=== PATIENT | male | born 1965 | race African-American/Black ===

== ENCOUNTER 2020-08-09 17:36 | Inpatient (IN) | payer OTHER ==
[~2020-08-09] VITALS: Ht 180.3 cm; Wt 87.1 kg
[2020-08-09] MEDS ORDERED: APIX5TAB PO (18:01)
[2020-08-09] MEDS ORDERED: GABA300C PO (18:01)
[2020-08-09] MEDS ORDERED: ROSU40TA23 PO (18:01)
[2020-08-09] MEDS ORDERED: LEVE500T20 PO (18:01)
[2020-08-09] MEDS ORDERED: METO-357 PO (18:01)
[2020-08-09] MEDS ORDERED: MAG HYDROX/AL HYDROX/SIMETH 30 ML UDC PO PRN (18:30)
[2020-08-09] MEDS ORDERED: TEMAZEPAM 7.5 MG CAPSULE PO PRN (18:30)
[2020-08-09] MEDS ORDERED: clonazePAM 0.5 MG TABLET PO SCH (18:30)
[2020-08-09] MEDS ORDERED: MAGNESIUM HYDROXIDE 30 ML UDC PO PRN (18:30)
[2020-08-09] MEDS ORDERED: ACETAMINOPHEN 325 MG TABLET PO PRN (18:30)
[2020-08-09] MEDS ORDERED: BLOOD SUGAR DIAGNOSTIC 1 EACH STRIP IN ONE (18:30)
--- NOTE | 2020-08-09 18:39 | NUR ---
Pt. arrived in the unit at 1800 by ambulance via a gurney. V/S taken and contraband done. Dr. Uriarte made aware of the admission and gave orders and seen pt. Will endorse to the incoming nurse for the completion of the admission.
[2020-08-09 18:43] VITALS: BP 153/73
[2020-08-09 19:58] VITALS: BP 114/81
[2020-08-09 20:00] VITALS: BP 114/81
[2020-08-09] MEDS: ESCITALOPRAM OXALATE (10 MG) 10 MG TABLET PO SCH (20:38)
[2020-08-09] MEDS ORDERED: GLIM2TAB31 PO (21:13)
--- NOTE | 2020-08-09 21:30 | NUR ---
GPS RN NOTE: ADMISSION NOTES ADMITTED THIS 55Y/O MALE PATIENT DIRECT ADMIT FROM [facility], PT. ADMITTED TO GPS ON HOLD 5150, PER HOLD, PATIENT WAS ADMITTED TO [facility] FOR DEPRESSION, PT. STATES THAT HE HAS SI FOR 2 MONTHS WITH A PLAN TO JUMP OFF HIS [place].NO PREVIOUS PSYCH MEDS.TX, NO PREVIOUS PSYCH HOSPITALIZATION, TOX SCREEN NEGATIVE, LIVES ALONE, A & O, DEPRESSED, STRESSOR: GOING THROUGH A DIVORCE, FLAT AFFECT. UPON FACE TO FACE ASSESSMENT PATIENT IS A&O X 2, DOES NOT REMEMBER THE NED & TIME, PER PATIENT, " I FORGET SOMETIMES." DEPRESSED, FLAT AFFECT, NEEDY, GUARDED, DISHEVELLED, COOPERATIVE, PRESSURED SPEECH, DENIES SI/HI AVH AT THIS TIME, PER PATIENT," I WAS FRUSTRATED & UPSET AT THAT TIME, BUT I AM FINE NOW, I DON'T HAVE ANY PLAN TO HURT MYSELF." PT. REFUSED TO SIGNS ADMISSION CONSENT PAPERS. PATIENT HAS HX OF STROKE 2 YRS AGO WITH LEFT SIDED WEAKNESS, UNSTEADY GAIT, NEEDS 1 PERSON ASSIST AT ALL TIMES WHEN OOB. CONTINENT, USES URINAL. REFUSED SKIN ASSESSMENT, STATED," I HAVE OLD SCARS ONLY, NO OTHER SKIN PROBLEM." BOTH MD AWARE AND NOTIFIED OF THE ADMISSION, BELONGINGS CONTRABAND WERE DONE, PT. RIGHTS DISCUSS BY NON LICENSED NUCLEAR EQUIPMENT OPERATOR, PROVIDE THE PT. WITH HANDBOOK, AND MEDICATIONS GUIDE, ENVIRONMENTAL SAFETY CHECK DONE, ENCOURAGED PT. VERBALIZED ANY FEELING CONCERN TO STAFF, ORIENT TO UNIT POLICY, NO ACUTE DISTRESS NOTED, VITAL SIGNS WNL, DENIES ANY PAIN AT THIS TIME, BED IN LOW LOCKED POSITION. BED ALARM ON. WILL CONTINUE TO MONITOR FOR Q15 SAFETY, MOOD AND BEHAVIOR.
[2020-08-09] MEDS ORDERED: DEXTROSE 50%-WATER 50 ML DISP.SYRIN IV PRN (22:00)
[2020-08-09] MEDS: BLOOD SUGAR DIAGNOSTIC 1 EACH STRIP IN SCH (22:00)
--- NOTE | 2020-08-09 22:04 | NUR ---
RN NOTE CALLED MARIETTA GRANT (PATIENT'S SISTER) AT [phone] & UPDATED MARIETTA ABOUT PATIENT'S CONDITION AT THIS TIME.
--- NOTE | 2020-08-09 22:30 | NUR ---
RN NOTE: MISCELLANEOUS ORDER PATIENT SPOKE TO CHARGE NURSE & PER PATIENT, " I NEED MY PHONE, I WORK WITH [employer] & I NEED TO MAKE CALLS TO KEEP MY JOB & EARN MONEY TO PAY MY BILLS." CHARGE NURSE CALLED DR. MACK & NOTIFIED. PER DR. MACK, "PATIENT IS ALLOWED TO HAVE CELL PHONE AT BED SIDE BUT HE NEEDS TO LEAVE HIS CELL PHONE MARINE MECHANIC AT NURSES STATION, CELL PHONE TO BE CHARGED AT NURSES STATION ONLY." ORDER NOTED & CARRIED OUT. PATIENT'S SISTER MARIETTA GRANT MADE AWARE. WILL CONTINUE TO MONITOR THE PATIENT FOR SAFETY & BEHAVIOR.
--- NOTE | 2020-08-09 22:49 | NUR ---
RN NOTE CALLED [facility] TO GET MEDICINES VERIFIED BUT PICTURE HANGER STATED THAT THERE SYSTEM IS DOWN, THEY WILL TRY TO VERIFY MEDS SOON THEIR SYSTEM STARTS WORKING PROPERLY.
[2020-08-09] MEDS ORDERED: CALCIUM CARBONATE 500 MG TAB.CHEW PO PRN (23:00)
--- NOTE | 2020-08-09 23:58 | NUR ---
RN NOTES: PT. C/O STOMACH UPSET, MAALOX 30 ML PO PRN GIVEN PER PT. REQUEST , WILL CONTINUE TO MONITOR.
[2020-08-10] MEDS: INSULIN REGULAR, HUMAN 100 UNIT/ML 3 ML VIAL SQ PRN ×5 (00:02→21:35)
--- NOTE | 2020-08-10 00:03 | NUR ---
RN NOTE PATIENT REFUSED ACCU CHECK AT 2200 & [employer]SI COVERAGE, PATIENT'S LATEST BLOOD SUGAR WAS 226 MG/DL AT 2014. PATIENT REFUSED TO EAT ANY SNACK & WANTS TO SLEEP & REST. WILL CONTINUE TO MONITOR FOR ANY BRANDI.
[2020-08-10] MEDS: BLOOD SUGAR DIAGNOSTIC 1 EACH STRIP IN SCH ×4 (07:03→21:30)
--- NOTE | 2020-08-10 07:04 | NUR ---
RN NOTE PATIENT'S BLOOD SUGAR IS 251 MG/DL AT THIS TIME. WILL ENDORSE TO AM RN TO ADMINISTER SSI COVERAGE PER PROTOCOL.
[2020-08-10 07:06] LABS: ALBUMIN 3.6 g/dL (3.4-5.0); BILIRUBIN,TOTAL 0.7 mg/dL (0.2-1.0); CALCIUM, SERUM 8.8 mg/dL (8.5-10.1); CREATININE 1.9 mg/dL (0.6-1.3); POTASSIUM 4.5 mmol/L (3.5-5.1); TOTAL PROTEIN, SERUM 7.6 g/dL (6.4-8.2)
[2020-08-10 07:10] LABS: CHOLESTEROL 185 mg/dL (<200); HDL CHOLESTEROL 48 mg/dL (40-60); LDL 104 mg/dL (0-99); TRIGLYCERIDES 138 mg/dL (30-150)
[2020-08-10 08:00] VITALS: BP_SYST 108; BP_SYST 116; BP_DIAS 57; BP_DIAS 58
[2020-08-10] MEDS: ESCITALOPRAM OXALATE (10 MG) 10 MG TABLET PO SCH (08:30)
[2020-08-10] MEDS: GABAPENTIN 300 MG CAPSULE PO SCH ×3 (08:30→16:53)
[2020-08-10] MEDS: LEVETIRACETAM (250 MG) 250 MG TABLET PO SCH ×2 (08:30→16:53)
[2020-08-10] MEDS: APIXABAN 5 MG TABLET PO SCH ×2 (08:32→16:55)
[2020-08-10] MEDS: METOPROLOL SUCCINATE 50 MG TAB.SR.24H PO SCH (08:32)
[2020-08-10 16:00] VITALS: BP 143/86
--- NOTE | 2020-08-10 18:18 | NUR ---
After Dr. Uriarte spoke to his step mother and sister he ordered to take the cell phones from the pt. After talking to the pt. with the assistance of the director of safety and security pt. gave the phones to the content writer.
[2020-08-10 20:00] VITALS: BP 122/69
[2020-08-10 20:15] VITALS: BP 122/69
[2020-08-10] MEDS: ATORVASTATIN 40 MG TABLET PO SCH (21:30)
--- NOTE | 2020-08-10 21:45 | NUR ---
RN NOTE PATIENT'S BLOOD SUGAR IS 241 MG/DL, 4 UNITS ADMINISTERED PER PROTOCOL. PATIENT HAD SNACK & TOLERATED WELL. WILL CONTINUE TO MONITOR.
--- NOTE | 2020-08-11 03:15 | NUR ---
RN NOTE PATIENT HAS BEEN SLEEPING COMFORTABLY. NO ACUTE CHANGES NOTED.
[2020-08-11] MEDS: INSULIN REGULAR, HUMAN 100 UNIT/ML 3 ML VIAL SQ PRN ×4 (07:54→21:51)
[2020-08-11 08:00] VITALS: BP 129/83
[2020-08-11] MEDS: BLOOD SUGAR DIAGNOSTIC 1 EACH STRIP IN SCH (08:05)
[2020-08-11] MEDS: LEVETIRACETAM (250 MG) 250 MG TABLET PO SCH ×2 (08:55→17:30)
[2020-08-11] MEDS: GABAPENTIN 300 MG CAPSULE PO SCH ×3 (08:55→17:29)
[2020-08-11] MEDS: ESCITALOPRAM OXALATE (10 MG) 10 MG TABLET PO SCH (08:55)
[2020-08-11] MEDS: APIXABAN 5 MG TABLET PO SCH ×2 (08:57→17:31)
[2020-08-11] MEDS: METOPROLOL SUCCINATE 50 MG TAB.SR.24H PO SCH (09:08)
[2020-08-11] MEDS ORDERED: DEXTROSE 50%-WATER 50 ML DISP.SYRIN IV PRN (11:00)
[2020-08-11] MEDS: BLOOD SUGAR DIAGNOSTIC 1 EACH STRIP VI SCH ×3 (12:06→21:48)
[2020-08-11 16:00] VITALS: BP 115/63
[2020-08-11 20:00] VITALS: BP 119/64
[2020-08-11 20:34] LABS: CREATININE, URINE 276.6 MG/DL (30.0-125.0); URINE TOTAL PROTEIN 43.6 mg/dL (0-11.9)
[2020-08-11 20:35] LABS: BILIRUBIN,URINE NEGATIVE (NEGATIVE); COLOR,URINE YELLOW (YELLOW); LEUKOCYTE ESTERASE ,URINE NEGATIVE (NEGATIVE); NITRITE, URINE NEGATIVE (NEGATIVE); PH,URINE 7.5 (5.0-8.0); PROTEIN,URINE TRACE mg/dl (NEGATIVE); UGLUCOSE 500 MG/DL mg/dL (NEGATIVE)
[2020-08-11 20:41] LABS: BACTERIA,URINE None seen /HPF (None Seen); RBC,URINE 0-2 /HPF (0-2); SQUAMOUS EPITHELIAL CELL,UR 0-2 /HPF (None Seen); URINE AMORPHOUS PHOSPHATES Many /HPF (None Seen); WBC,URINE 0-2 /HPF (0-3)
[2020-08-11 21:00] LABS: EOSINOPHIL,URINE None Seen
[2020-08-11] MEDS: ATORVASTATIN 40 MG TABLET PO SCH (21:45)
[2020-08-11] MEDS ORDERED: OLANZAPINE ZYDIS 5 MG TAB.RAPDIS PO SCH (22:00)
[2020-08-12 06:55] LABS: BASOPHILS % (AUTO) 0.9 % (0.0-2.0); EOSINOPHILS % (AUTO) 1.8 % (0.0-6.0); HEMATOCRIT 48 % (39-51); LYMPHOCYTES # (AUTO) 1.8 /CMM (0.8-4.8); LYMPHOCYTES % (AUTO) 54.1 % (20.0-44.0); MEAN CORPUSCULAR HGB CONC 34 g/dl (31.0-36.0); MEAN CORPUSCULAR VOLUME 92 fL (80-96); MONOCYTES # (AUTO) 0.3 /CMM (0.1-1.30); MONOCYTES % (AUTO) 7.9 % (2.0-12.0); NEUTROPHILS # (AUTO) 1.2 /CMM (1.8-8.9); NEUTROPHILS % (AUTO) 35.3 % (43.0-81.0); PLATELET COUNT (AUTO) 208 /CMM (150-450); RED BLOOD CELL COUNT(AUTO) 5.16 MIL/uL (4.5-6.0); WHITE BLOOD COUNT (AUTO) 3.4 K/uL (4.3-11.0)
[2020-08-12 07:03] LABS: ALBUMIN 3.3 g/dL (3.4-5.0); BILIRUBIN,TOTAL 0.6 mg/dL (0.2-1.0); CALCIUM, SERUM 8.7 mg/dL (8.5-10.1); CREATININE 1.8 mg/dL (0.6-1.3); MAGNESIUM 2.1 mg/dL (1.8-2.4); PHOSPHORUS 3.1 mg/dL (2.5-4.9); POTASSIUM 4.3 mmol/L (3.5-5.1); TOTAL PROTEIN, SERUM 7.5 g/dL (6.4-8.2)
[2020-08-12] MEDS: BLOOD SUGAR DIAGNOSTIC 1 EACH STRIP VI SCH ×4 (07:36→21:13)
[2020-08-12] MEDS: INSULIN REGULAR, HUMAN 100 UNIT/ML 3 ML VIAL SQ PRN ×3 (07:41→17:14)
[2020-08-12 08:00] VITALS: BP 102/72
[2020-08-12] MEDS: LEVETIRACETAM (250 MG) 250 MG TABLET PO SCH ×2 (08:14→17:25)
[2020-08-12] MEDS: ESCITALOPRAM OXALATE (10 MG) 10 MG TABLET PO SCH (08:14)
[2020-08-12] MEDS: GABAPENTIN 300 MG CAPSULE PO SCH ×3 (08:14→17:25)
[2020-08-12] MEDS: METOPROLOL SUCCINATE 50 MG TAB.SR.24H PO SCH (08:20)
[2020-08-12] MEDS: APIXABAN 5 MG TABLET PO SCH ×2 (08:20→17:23)
--- NOTE | 2020-08-12 14:26 | NUR ---
Family Contact: SW called the pts sister, Jessica ([phone]), who informed the SW about the pts manipulation and that he just wants to be released from the hospital. Pts sister stated that he needs to be in the hospital and needs to get the treatment to recover and come to terms with his life. SW stated that she will ask the insurance for more time.
--- NOTE | 2020-08-12 14:53 | NUR ---
UR Note: FREDIS contacted [facility] Gauge And Weigh Machine Adjuster, Judie ([phone]), and left a clinical review asking for additional authorization on her voicemail.
[2020-08-12 16:00] VITALS: BP 129/71
--- NOTE | 2020-08-12 16:22 | NUR ---
Initial Discharge Plan: Pt currently resides at home with his and children located at [address] [place] [address]; ([phone]). Per pt, he would like to go back home. SW will work with the pt and the MD regarding appropriate discharge planning. SW will form a safe and proper discharge.
[2020-08-12 20:00] VITALS: BP 123/75
[2020-08-12] MEDS: ATORVASTATIN 40 MG TABLET PO SCH (21:03)
[2020-08-12] MEDS: *INSULIN REGULAR(HUMULIN R)HUM 100 UNIT/ML VIAL SQ PRN (21:23)
[2020-08-13 04:06] LABS: PTH, INTACT 33 pg/mL (15-65)
[2020-08-13 06:47] LABS: BASOPHILS % (AUTO) 0.7 % (0.0-2.0); EOSINOPHILS % (AUTO) 1.3 % (0.0-6.0); HEMATOCRIT 45 % (39-51); HEMOGLOBIN 15.4 g/dL (13.5-17.5); LYMPHOCYTES # (AUTO) 1.8 /CMM (0.8-4.8); LYMPHOCYTES % (AUTO) 53.9 % (20.0-44.0); MEAN CORPUSCULAR HGB CONC 34 g/dl (31.0-36.0); MEAN CORPUSCULAR VOLUME 91 fL (80-96); MONOCYTES # (AUTO) 0.3 /CMM (0.1-1.30); MONOCYTES % (AUTO) 8.4 % (2.0-12.0); NEUTROPHILS # (AUTO) 1.2 /CMM (1.8-8.9); NEUTROPHILS % (AUTO) 35.7 % (43.0-81.0); PLATELET COUNT (AUTO) 204 /CMM (150-450); RED BLOOD CELL COUNT(AUTO) 4.93 MIL/uL (4.5-6.0); WHITE BLOOD COUNT (AUTO) 3.3 K/uL (4.3-11.0)
[2020-08-13 07:02] LABS: CALCIUM, SERUM 8.5 mg/dL (8.5-10.1); POTASSIUM 4.2 mmol/L (3.5-5.1)
[2020-08-13] MEDS: BLOOD SUGAR DIAGNOSTIC 1 EACH STRIP VI SCH ×4 (07:31→21:08)
[2020-08-13 08:00] VITALS: BP 118/77
[2020-08-13] MEDS: LEVETIRACETAM (250 MG) 250 MG TABLET PO SCH ×2 (08:27→16:44)
[2020-08-13] MEDS: GABAPENTIN 300 MG CAPSULE PO SCH ×3 (08:27→16:44)
[2020-08-13] MEDS: ESCITALOPRAM OXALATE (10 MG) 10 MG TABLET PO SCH (08:27)
[2020-08-13] MEDS: METOPROLOL SUCCINATE 50 MG TAB.SR.24H PO SCH (08:28)
[2020-08-13] MEDS: APIXABAN 5 MG TABLET PO SCH ×2 (08:37→16:45)
--- NOTE | 2020-08-13 09:00 | NUR ---
RN NOTE- PT ALERT ORIENTED PERSON PLACE INTERACTIVE NEEDS ATTENDED PO INTAKE GOOD MED COMPLIANT MINIMIZES STATES 'I SHOULDNT BE HERE' DENIES ALL
[2020-08-13] MEDS: INSULIN REGULAR, HUMAN 100 UNIT/ML 3 ML VIAL SQ PRN ×3 (09:23→17:07)
--- NOTE | 2020-08-13 09:51 | NUR ---
Family Contact: SW called the pts ex , Ami ([phone]), and was unable to make contact.
--- NOTE | 2020-08-13 11:46 | NUR ---
Family Contact: SW called the pts sister, Jessica ([phone]), and discussed the pts treatment plan. SW stated that she cannot force the pt to accept treatment in a facility as he is alert and oriented. She asked the SW to speak to the pt about it and then call her back the following day.
--- NOTE | 2020-08-13 12:18 | NUR ---
UR Note: FREDIS contacted [facility] Flat Examiner, Judie ([phone]), and conducted a live clinical to receive additional authorization. FREDIS was told that she would receive a call back regarding the authorization.
[2020-08-13 13:07] LABS: *SPE A/G RATIO 0.8 (0.7-1.7); *SPE ALBUMIN 3.1 g/dL (2.9-4.4); *SPE ALPHA-1-GLOBULIN 0.2 g/dL (0.0-0.4); *SPE ALPHA-2-GLOBULIN 0.8 g/dL (0.4-1.0); *SPE BETA GLOBULIN 1.1 g/dL (0.7-1.3); *SPE GLOBULIN, TOTAL 3.8 g/dL (2.2-3.9); *SPE M-SPIKE Not Observed g/dL (Not Observed); *SPEGAMMA GLOBULIN 1.6 g/dL (0.4-1.8)
--- NOTE | 2020-08-13 14:12 | NUR ---
UR Note: [facility] Orthodontic Laboratory Technician, Judie ([phone]), contacted the SW and stated that the pt is authorized from 08/13-08/14 with a review due on 08/14.
--- NOTE | 2020-08-13 14:15 | NUR ---
UR Note: SW contacted the [facility] discharge planning line ([phone]) and left a voicemail stating that the pt needs a psychiatrist referral.
[2020-08-13 20:00] VITALS: BP 90/54
[2020-08-13] MEDS: ATORVASTATIN 40 MG TABLET PO SCH (21:02)
[2020-08-13] MEDS: *INSULIN REGULAR(HUMULIN R)HUM 100 UNIT/ML VIAL SQ PRN (21:10)
[2020-08-13 21:30] VITALS: BP 103/59
[2020-08-14] MEDS: BLOOD SUGAR DIAGNOSTIC 1 EACH STRIP VI SCH ×4 (07:28→21:46)
[2020-08-14] MEDS: INSULIN REGULAR, HUMAN 100 UNIT/ML 3 ML VIAL SQ PRN ×3 (07:31→16:31)
[2020-08-14 08:00] VITALS: BP 105/63
[2020-08-14] MEDS: ESCITALOPRAM OXALATE (10 MG) 10 MG TABLET PO SCH (08:23)
[2020-08-14] MEDS: GABAPENTIN 300 MG CAPSULE PO SCH ×3 (08:23→16:29)
[2020-08-14] MEDS: LEVETIRACETAM (250 MG) 250 MG TABLET PO SCH ×2 (08:23→16:29)
[2020-08-14] MEDS: APIXABAN 5 MG TABLET PO SCH ×2 (08:24→16:29)
[2020-08-14] MEDS: METOPROLOL SUCCINATE 50 MG TAB.SR.24H PO SCH (08:30)
--- NOTE | 2020-08-14 08:30 | NUR ---
GPS/RN NOTES BP-105/63 PULSE 67 METOPROLOL 50MG 1 TAB NOT ADMINISTERED. WILL CONTINUE MONITOR.
--- NOTE | 2020-08-14 09:03 | NUR ---
UR Note: [facility] Rustic Fence Builder, Judie ([phone]), contacted the SW and the SW conducted a live clinical to receive additional authorization. SW was told that she would receive a call back regarding the authorization once the case checker reviews with her doctor.
--- NOTE | 2020-08-14 10:16 | NUR ---
Probable Cause Hearing: Pts 5250 hold was upheld for danger to self.
--- NOTE | 2020-08-14 13:05 | NUR ---
Family Contact: SW called the pts sister, Jessica ([phone]), and informed her of the pts probable cause hearing and informed her that once the MD states that the pt is ready for discharge she will call the pts sister and inform her so that everything can be prepped.
[2020-08-14 16:00] VITALS: BP 96/54
--- NOTE | 2020-08-14 16:25 | NUR ---
Family Contact: SW called the pts sister, Jessica ([phone]), and left a voicemail stating that the pt is going to be discharged the following day and she would like a message informing her who is going to apple picking supervisor the pt and what time.
[2020-08-14 20:56] VITALS: BP 94/50
[2020-08-14] MEDS: ATORVASTATIN 40 MG TABLET PO SCH (21:46)
[2020-08-14] MEDS: *INSULIN REGULAR(HUMULIN R)HUM 100 UNIT/ML VIAL SQ PRN (21:49)
[2020-08-15] MEDS: BLOOD SUGAR DIAGNOSTIC 1 EACH STRIP VI SCH ×2 (07:34→11:44)
[2020-08-15 08:00] VITALS: BP 138/80
[2020-08-15] MEDS: INSULIN REGULAR, HUMAN 100 UNIT/ML 3 ML VIAL SQ PRN ×2 (08:00→11:48)
[2020-08-15] MEDS: LEVETIRACETAM (250 MG) 250 MG TABLET PO SCH (08:32)
[2020-08-15 08:33] VITALS: BP 138/80
[2020-08-15] MEDS: METOPROLOL SUCCINATE 50 MG TAB.SR.24H PO SCH (08:33)
[2020-08-15] MEDS: ESCITALOPRAM OXALATE (10 MG) 10 MG TABLET PO SCH (08:33)
[2020-08-15] MEDS: GABAPENTIN 300 MG CAPSULE PO SCH (08:33)
[2020-08-15] MEDS: APIXABAN 5 MG TABLET PO SCH (08:35)
--- NOTE | 2020-08-15 09:00 | NUR ---
RN NOTE- PT ALERT ORIENTED PERSON PLACE TIME PURPOSE A BIT NEEDY MED COMPLIANT FOCUS ON DC TODAY DENYING ALL
--- NOTE | 2020-08-15 09:01 | NUR ---
Dr. Uriarte gave an order to D/C hold and D/C back to his apartment and to follow up with psych and medical doctors.
--- NOTE | 2020-08-15 09:46 | NUR ---
RN NOTE- PT C/O CONSTIPATION. CHECK OF FILE NO BM X FOUR DAYS . BOWEL SOUNDS HYPOACTIVE MOM 30 CC GIVEN
--- NOTE | 2020-08-15 12:50 | NUR ---
RN NOTE- PT DC HOME AT THIS TIME INTO THE CARE OF FRIEND, SAIMA [phone]. PT VS STABLE, ALERT ORIENTED TO PERSON PLACE TIME PURPOSE. DENIES SI HI AH VH. SKIN INTACT. MED COMPLIANT CALM , INTERACTIVE. REFUSED VACCINES. AFTERCARE AND RX DISCUSSED W PT. VERBALIZED UNDERSTANDING. ID WRISTBAND REMOVED. ESCORTED OFF UNIT BY STAFF.
--- NOTE | 2020-08-15 14:32 | NUR ---
Discharge Note: Pt will be discharged back to his apartment located at [address] [facility], [address] Pt will be discharged at 12:30pm and will be picked up by his friend, John ([phone]). Pts sister, Jessica ([phone]), was made aware of the discharge. Upon discharge, the pt appears to be in a euthymic mood and presents with a calm affect. Pt appears to be alert and oriented x4 (time, place, self and situation). Pt appears to be nonambulatory and uses a wheelchair. Pt denied both suicidal and homicidal ideation as well as auditory and visual hallucinations. Pt will be under the care of psychiatrist, Dr. Ethan Vazquez, located at [address] [place] [address], [place] [address]; and pts mysql developer, Dr. Carlson, located at [address] [facility] [address], [place] [address]; . The multidisciplinary exit care form was done, printed, signed, and given to the patient.
== END 2020-08-15 12:45 | disposition home or self-care (01) | DRG 885 ==
LOC: GPS 17:36
PROVIDERS: ADMIT Psychiatry & Neurology Psychiatry; ATTEND Nurse Practitioner Family
DX: F33.2 Major depressive disorder, recurrent severe without psychotic features (principal); N17.0 Acute kidney failure with tubular necrosis; N18.9 Chronic kidney disease, unspecified; E11.65 Type 2 diabetes mellitus with hyperglycemia; R45.851 Suicidal ideations; I69.354 Hemiplegia and hemiparesis following cerebral infarction affecting left non-dominant side; F23 Brief psychotic disorder; E11.22 Type 2 diabetes mellitus with diabetic chronic kidney disease; I25.10 Atherosclerotic heart disease of native coronary artery without angina pectoris; G40.909 Epilepsy, unspecified, not intractable, without status epilepticus; F41.9 Anxiety disorder, unspecified; Z95.1 Presence of aortocoronary bypass graft; Z73.6 Limitation of activities due to disability; M62.81 Muscle weakness (generalized); F60.3 Borderline personality disorder; Z79.84 Long term (current) use of oral hypoglycemic drugs
CPT/HCPCS: 36415; 76770-TC; 80048-TC; 80053-TC; 80061-TC; 81001; 82550-TC; 82570-TC; 82962-TC; 83735-TC; 83970; 84100-TC; 84155; 84155-TC; 84165; 84300-TC; 85025-TC; 87081-TC; 97116-TC; 97530-TC; J1815